=== PATIENT | female | born 1985 | race Caucasian/White ===

== ENCOUNTER 2017-09-11 14:57 | Emergency (ER) | payer OTHER, MEDICAID ==
[~2017-09-11] VITALS: Ht 180.3 cm; Wt 79.4 kg
[~2017-09-11 14:57] MED LIST: ALBUTEROL2.5 MG/31 INH; PREDNISONE 20 M20 M1 PO; PREDNISONE50 MG PO; VENTOLIN HFA 1818 GM
[2017-09-11] MEDS ORDERED: PREDNISONE 20 M20 MG PO (16:38)
[2017-09-11] MEDS ORDERED: ALBUTEROL2.5 MG/31 INH (16:38)
[2017-09-11] MEDS ORDERED: PROAIR HFA8.5 GM INH (16:38)
[2017-09-11 16:58] VITALS: BP 126/88
== END 2017-09-11 16:59 | disposition home or self-care (01) ==
LOC: M.ERS 14:57
DX: J45.909 Unspecified asthma, uncomplicated (principal)

== ENCOUNTER 2018-01-06 09:57 | Emergency (ER) | payer OTHER, MEDICAID ==
[~2018-01-06] VITALS: Ht 180.3 cm; Wt 81.7 kg
[~2018-01-06 09:57] MED LIST changes: +PREDNISONE 20 M20 MG PO; +PROAIR HFA8.5 GM INH
[2018-01-06] MEDS ORDERED: BUTALB-APAP-CA1 EACH PO (10:21)
[2018-01-06] MEDS ORDERED: MEDROLDOSEPACK PO (10:21)
[2018-01-06] MEDS ORDERED: ZOFRAN ODT4 MG PO (10:21)
[2018-01-06] MEDS ORDERED: ZPAK PO (10:25)
[2018-01-06 10:37] VITALS: BP 111/60
== END 2018-01-06 10:40 | disposition home or self-care (01) ==
LOC: M.ERS 09:57
DX: G43.909 Migraine, unspecified, not intractable, without status migrainosus (principal); J32.0 Chronic maxillary sinusitis; J45.909 Unspecified asthma, uncomplicated

== ENCOUNTER 2018-01-13 04:10 | Emergency (ER) | payer OTHER, MEDICAID ==
[~2018-01-13] VITALS: Ht 180.3 cm; Wt 81.7 kg
[~2018-01-13 04:10] MED LIST changes: +BUTALB-APAP-CA1 EACH PO; +MEDROLDOSEPACK PO; +ZOFRAN ODT4 MG PO; +ZPAK PO
[2018-01-13] MEDS ORDERED: NASONEX17 GM NASAL (05:45)
[2018-01-13] MEDS ORDERED: BUTALB-APAP-CA1 EACH PO (05:45)
[2018-01-13 06:04] VITALS: BP 113/75
== END 2018-01-13 06:06 | disposition home or self-care (01) ==
LOC: M.ERS 04:10
DX: G43.909 Migraine, unspecified, not intractable, without status migrainosus (principal); J45.909 Unspecified asthma, uncomplicated

== ENCOUNTER 2018-04-08 10:07 | Emergency (ER) | payer OTHER, MEDICAID ==
[~2018-04-08] VITALS: Ht 180.3 cm; Wt 86.2 kg
[~2018-04-08 10:07] MED LIST changes: +NASONEX17 GM NASAL
[2018-04-08 10:12] VITALS: BP 117/77
[2018-04-08] MEDS ORDERED: MEDROLDOSEPACK PO (10:26)
== END 2018-04-08 10:42 | disposition home or self-care (01) ==
LOC: M.ERS 10:07
DX: J30.2 Other seasonal allergic rhinitis (principal); J06.9 Acute upper respiratory infection, unspecified

== ENCOUNTER 2018-04-29 11:28 | Emergency (ER) | payer OTHER, MEDICAID ==
[~2018-04-29] VITALS: Ht 180.3 cm; Wt 93.4 kg
[2018-04-29 11:48] LABS: ABSOLUTE LYMPHOCYTES 1.9 thou/uL (0.8-5.3); ABSOLUTE MONOCYTES 0.3 thou/uL (0.0-1.2); BASOPHILS 0.5 %; EOSINOPHILS 0.5 %; HEMATOCRIT 40.9 % (37.0-47.0); HEMOGLOBIN 13.9 gm/dL (12.0-15.0); LYMPHOCYTES 26.2 %; MCH 28.9 pg (26.0-34.0); MCHC 33.9 g/dL (28.0-37.0); MCV 85.3 fL (80.0-100.0); MONOCYTES 3.9 %; MPV 9.5 fl. (7.2-11.1); NUCLEATED RBCS 0 /100WBC; PLATELET COUNT* 198 thou/uL (150-400); POLYS 68.9 %; RBC 4.79 mil/uL (4.20-5.00); RDW-CV 13.1 % (10.5-14.5); WBC 7.3 thou/uL (4.0-11.0)
[2018-04-29 11:56] LABS: ANION GAP 13 mmol/L (7-16); BUN 12 mg/dL (7-18); CALCIUM 9.2 mg/dL (8.5-10.1); CHLORIDE 102 mmol/L (98-107); CO2 22 mmol/L (21-32); CREATININE 1.1 mg/dL (0.6-1.3); GLUCOSE 122 mg/dL (70-99); SODIUM 137 mmol/L (136-145)
[2018-04-29 12:09] LABS: ALKALINE PHOSPHATASE 54 U/L (46-116); SGOT 15 U/L (15-37); SGPT 19 U/L (30-65); TOTAL BILIRUBIN 0.4 mg/dL (<0.1-1.0); TROPONIN-I LEVEL <0.06 ng/mL (<0.06)
[2018-04-29 14:21] LABS: URINE BILIRUBIN NEGATIVE (Negative); URINE BLOOD NEGATIVE (Negative); URINE CLARITY CLEAR; URINE COLOR YELLOW; URINE GLUCOSE-RANDOM NEGATIVE (Negative); URINE KETONES 1+ (Negative); URINE LEUKOCYTES-REFLEX NEGATIVE (Negative); URINE NITRITE-REFLEX NEGATIVE (Negative); URINE PROTEIN NEGATIVE (Negative); URINE SPECIFIC GRAVITY <= 1.005 (1.005-1.030); URINE UROBILINOGEN 0.2 E.U./dl (0.2-1.0)
[2018-04-29 14:28] LABS: AMP/METHAMP Negative (Negative); BARBITURATES Negative (Negative); BENZODIAZEPINES Negative (Negative); COCAINE POSITIVE (Negative); METHADONE Negative (Negative); OPIATES Negative (Negative); PCP Negative (Negative); THC Negative (Negative)
[2018-04-29 16:05] VITALS: BP 132/79
--- NOTE | 2018-04-30 16:07 | EKG ---
[place] [address] ELECTROCARDIOGRAM REPORT Name: NEOM RIDDLE Room: [facility]#: [id number] Admission: 04/29/18 Attend Phys: Discharge: 04/29/18 Date of : [birth year] Report #: [id number] THIS REPORT FOR: //name// [facility] ED Test Date: 2018-04-29 Test Time: 13:54:53 Pat Name: NEMO RIDDLE Department: Room: Gender: F Home Health Aid: : 1985 Requested By: Madison Conner Order Number: [id number] MD: Guillermo Mccrary Measurements Intervals [place] Rate: 73 P: 88 [place]: 135 QRS: 65 QRSD: 96 T: QT: 411 QTc: 453 Interpretive Statements Sinus rhythm Abnrm T, consider ischemia, anterolateral lds Baseline wander in lead(s) III,aVL No previous ECG available for comparison Electronically Signed On 04-30-2018 16:07:34 CDT by Guillermo Mccrary [email or web address] <ELECTRONICALLY SIGNED> By: Guillermo Mccarry MD, [facility] 04/30/18 1607 1354 1354 Guillermo Mccrary MD, FACC /EPI
--- NOTE | 2018-04-30 16:07 | EKG ---
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
== END 2018-04-29 16:18 | disposition home or self-care (01) ==
LOC: M.ERS 11:28
PROVIDERS: Emergency Medicine Emergency Medical Services; Nurse Practitioner Family
DX: R07.89 Other chest pain (principal); R11.10 Vomiting, unspecified; J45.909 Unspecified asthma, uncomplicated; Z79.899 Other long term (current) drug therapy

== ENCOUNTER 2018-05-03 10:04 | Emergency (ER) | payer OTHER, MEDICAID ==
[~2018-05-03] VITALS: Ht 180.3 cm; Wt 83.0 kg
[2018-05-03] MEDS ORDERED: ACCUNEB SO1.25 MG/1 INH (10:11)
[2018-05-03 10:38] LABS: URINE BILIRUBIN NEGATIVE (Negative); URINE BLOOD NEGATIVE (Negative); URINE CLARITY CLEAR; URINE COLOR YELLOW; URINE GLUCOSE-RANDOM NEGATIVE (Negative); URINE KETONES NEGATIVE (Negative); URINE LEUKOCYTES-REFLEX NEGATIVE (Negative); URINE NITRITE-REFLEX NEGATIVE (Negative); URINE PROTEIN NEGATIVE (Negative); URINE SPECIFIC GRAVITY <= 1.005 (1.005-1.030); URINE UROBILINOGEN 0.2 E.U./dl (0.2-1.0)
[2018-05-03 10:42] LABS: ABSOLUTE EOSINOPHILS 0.1 thou/uL (0.0-0.7); ABSOLUTE LYMPHOCYTES 2.3 thou/uL (0.8-5.3); ABSOLUTE MONOCYTES 0.3 thou/uL (0.0-1.2); ABSOLUTE NEUTROPHILS 2.9 thou/uL (1.6-8.1); BASOPHILS 0.4 %; EOSINOPHILS 2.3 %; LYMPHOCYTES 40.9 %; MCH 28.7 pg (26.0-34.0); MCHC 33.4 g/dL (28.0-37.0); MCV 86.1 fL (80.0-100.0); MONOCYTES 4.9 %; MPV 9.1 fl. (7.2-11.1); NUCLEATED RBCS 0 /100WBC; PLATELET COUNT* 206 thou/uL (150-400); POLYS 51.5 %; RBC 4.87 mil/uL (4.20-5.00); RDW-CV 13.4 % (10.5-14.5); WBC 5.7 thou/uL (4.0-11.0)
[2018-05-03 10:44] LABS: AMP/METHAMP Negative (Negative); BARBITURATES POSITIVE (Negative); BENZODIAZEPINES Negative (Negative); COCAINE Negative (Negative); METHADONE Negative (Negative); OPIATES Negative (Negative); PCP Negative (Negative); THC Negative (Negative)
[2018-05-03 10:50] LABS: ANION GAP 7 mmol/L (7-16); BUN 11 mg/dL (7-18); CALCIUM 9.1 mg/dL (8.5-10.1); CHLORIDE 102 mmol/L (98-107); CO2 28 mmol/L (21-32); GLUCOSE 82 mg/dL (70-99); POTASSIUM 3.8 mmol/L (3.5-5.1); SODIUM 137 mmol/L (136-145)
[2018-05-03 10:57] LABS: ALBUMIN 3.9 g/dL (3.4-5.0); ALKALINE PHOSPHATASE 52 U/L (46-116); SGOT 12 U/L (15-37); SGPT 15 U/L (30-65); TOTAL BILIRUBIN 0.3 mg/dL (<0.1-1.0); TOTAL PROTEIN 7.9 g/dL (6.4-8.2); TROPONIN-I LEVEL <0.06 ng/mL (<0.06)
[2018-05-03] MEDS ORDERED: VISTARIL 25 MG25 M1 PO (11:13)
[2018-05-03 11:38] VITALS: BP 119/76
--- NOTE | 2018-05-03 16:47 | EKG ---
[place] [address] ELECTROCARDIOGRAM REPORT Name: NEMO RIDDLE Room: [facility]#: [id number] Admission: 05/03/18 Attend Phys: Discharge: 05/03/18 Date of : [birth year] Report #: [id number] THIS REPORT FOR: //name// [facility] ED Test Date: 2018-05-03 Test Time: 10:10:12 Pat Name: NEMO RIDDLE Department: Room: Gender: F Air Pollution Auditor: Marguerite ALEJO : 1985 Requested By: Evette Ramirez Order Number: [id number] MD: Guillermo Mccrary Measurements Intervals [place] Rate: 82 P: 85 [place]: 130 QRS: 58 QRSD: 87 T: -23 QT: 338 QTc: 395 Interpretive Statements Sinus rhythm Probable left atrial enlargement Borderline repolarization abnormality Compared to ECG 04/29/2018 13:54:53 Possible ischemia no longer present Electronically Signed On 05-03-2018 16:47:36 CDT by Guillermo Mccrary [email or web address] <ELECTRONICALLY SIGNED> By: Guillermo Mccrary MD, [facility] 05/03/18 1647 1010 1010 Guillermo Mccrary MD, FAC /EPI
== END 2018-05-03 11:39 | disposition home or self-care (01) ==
LOC: M.ERS 10:04
PROVIDERS: Nurse Practitioner Family
DX: R07.89 Other chest pain (principal); F41.9 Anxiety disorder, unspecified; J45.909 Unspecified asthma, uncomplicated

== ENCOUNTER 2018-06-26 10:59 | Emergency (ER) | payer OTHER, MEDICAID ==
[~2018-06-26] VITALS: Ht 180.3 cm; Wt 96.8 kg
[~2018-06-26 10:59] MED LIST changes: +ACCUNEB SO1.25 MG/1 INH; +VISTARIL 25 MG25 M1 PO
[2018-06-26 11:36] LABS: ABSOLUTE BASOPHILS 0.1 thou/uL (0.0-0.2); ABSOLUTE EOSINOPHILS 0.2 thou/uL (0.0-0.7); ABSOLUTE LYMPHOCYTES 2.2 thou/uL (0.8-5.3); ABSOLUTE MONOCYTES 0.4 thou/uL (0.0-1.2); BASOPHILS 1.2 %; EOSINOPHILS 3.4 %; HEMATOCRIT 40.1 % (37.0-47.0); HEMOGLOBIN 13.4 gm/dL (12.0-15.0); LYMPHOCYTES 46.7 %; MCH 28.6 pg (26.0-34.0); MCHC 33.3 g/dL (28.0-37.0); MCV 85.9 fL (80.0-100.0); MONOCYTES 7.5 %; NUCLEATED RBCS 0 /100WBC; PLATELET COUNT* 198 thou/uL (150-400); POLYS 41.2 %; RBC 4.67 mil/uL (4.20-5.00); RDW-CV 13.3 % (10.5-14.5); WBC 4.8 thou/uL (4.0-11.0)
[2018-06-26 11:44] LABS: CALCIUM 8.7 mg/dL (8.5-10.1); CREATININE 0.9 mg/dL (0.6-1.3); POTASSIUM 3.9 mmol/L (3.5-5.1)
[2018-06-26 11:49] LABS: ALBUMIN 3.5 g/dL (3.4-5.0); TOTAL BILIRUBIN 0.2 mg/dL (<0.1-1.0); TOTAL PROTEIN 7.2 g/dL (6.4-8.2)
[2018-06-26] MEDS ORDERED: DICLOFENAC SODI75 MG PO (12:25)
[2018-06-26] MEDS ORDERED: ZOFRAN ODT4 MG PO (12:25)
[2018-06-26 12:45] VITALS: BP 119/62
== END 2018-06-26 12:47 | disposition home or self-care (01) ==
LOC: M.ERS 10:59
PROVIDERS: Physician Assistant
DX: R51 Headache (principal); R11.2 Nausea with vomiting, unspecified; F41.9 Anxiety disorder, unspecified; J45.909 Unspecified asthma, uncomplicated

== ENCOUNTER 2018-07-03 06:57 | Emergency (ER) | payer OTHER, MEDICAID ==
[~2018-07-03] VITALS: Ht 180.3 cm; Wt 96.6 kg
[~2018-07-03 06:57] MED LIST changes: +DICLOFENAC SODI75 MG PO
[2018-07-03] MEDS ORDERED: HYDROXYZINE HCL25 M1 PO (07:04)
[2018-07-03] MEDS ORDERED: AUGMENTIN125 MG/53 PO (07:04)
[2018-07-03] MEDS ORDERED: LEXAPRO 10 MG T10 M1 PO (07:04)
[2018-07-03 07:39] LABS: ABSOLUTE EOSINOPHILS 0.1 thou/uL (0.0-0.7); ABSOLUTE LYMPHOCYTES 1.7 thou/uL (0.8-5.3); ABSOLUTE MONOCYTES 0.3 thou/uL (0.0-1.2); BASOPHILS 0.6 %; HEMATOCRIT 40.3 % (37.0-47.0); HEMOGLOBIN 13.3 gm/dL (12.0-15.0); LYMPHOCYTES 26.9 %; MCH 28.4 pg (26.0-34.0); MCV 86.2 fL (80.0-100.0); MONOCYTES 4.8 %; MPV 9.1 fl. (7.2-11.1); NUCLEATED RBCS 0 /100WBC; PLATELET COUNT* 192 thou/uL (150-400); POLYS 65.7 %; RBC 4.68 mil/uL (4.20-5.00); RDW-CV 13.2 % (10.5-14.5); WBC 6.2 thou/uL (4.0-11.0)
[2018-07-03 07:43] LABS: URINE BILIRUBIN NEGATIVE (Negative); URINE BLOOD TRACE (Negative); URINE CLARITY CLEAR; URINE COLOR YELLOW; URINE GLUCOSE-RANDOM NEGATIVE (Negative); URINE KETONES NEGATIVE (Negative); URINE LEUKOCYTES-REFLEX NEGATIVE (Negative); URINE NITRITE-REFLEX NEGATIVE (Negative); URINE PROTEIN NEGATIVE (Negative); URINE UROBILINOGEN 0.2 E.U./dl (0.2-1.0)
[2018-07-03 07:48] LABS: CALCIUM 8.6 mg/dL (8.5-10.1); POTASSIUM 4.3 mmol/L (3.5-5.1)
[2018-07-03 07:52] LABS: ALBUMIN 3.5 g/dL (3.4-5.0); TOTAL BILIRUBIN 0.2 mg/dL (<0.1-1.0); TOTAL PROTEIN 7.2 g/dL (6.4-8.2)
[2018-07-03] MEDS ORDERED: PHENERGAN 25 MG25 M1 PO (09:10)
[2018-07-03 09:24] VITALS: BP 149/79
== END 2018-07-03 09:25 | disposition home or self-care (01) ==
LOC: M.ERS 06:57
PROVIDERS: Personal Emergency Response Attendant
DX: R11.2 Nausea with vomiting, unspecified (principal); R07.9 Chest pain, unspecified; J45.909 Unspecified asthma, uncomplicated; R00.0 Tachycardia, unspecified; R51 Headache

== ENCOUNTER 2018-12-30 11:18 | Emergency (ER) | payer OTHER, MEDICAID ==
[~2018-12-30] VITALS: Ht 180.3 cm; Wt 86.2 kg
[~2018-12-30 11:18] MED LIST changes: +AUGMENTIN125 MG/53 PO; +HYDROXYZINE HCL25 M1 PO; +LEXAPRO 10 MG T10 M1 PO; +PHENERGAN 25 MG25 M1 PO
[2018-12-30] MEDS ORDERED: ACCUNEB SO1.25 MG/1 INH (11:37)
[2018-12-30] MEDS ORDERED: ZPAK PO (12:33)
[2018-12-30] MEDS ORDERED: PREDNISONE 20 M20 M1 PO (12:33)
[2018-12-30 13:41] VITALS: BP 118/68
== END 2018-12-30 13:41 | disposition home or self-care (01) ==
LOC: M.ERS 11:18
DX: J32.0 Chronic maxillary sinusitis (principal); J45.909 Unspecified asthma, uncomplicated

== ENCOUNTER 2019-08-03 13:54 | Emergency (ER) | payer OTHER, MEDICAID ==
[~2019-08-03] VITALS: Ht 180.3 cm; Wt 89.8 kg
[2019-08-03 14:44] LABS: INFLUENZA A ANTIGEN Negative (Negative); INFLUENZA B ANTIGEN Negative (Negative)
[2019-08-03] MEDS ORDERED: ZYRTEC10 M5 PO (15:15)
[2019-08-03] MEDS ORDERED: AMOXICILLIN 50500 MG PO (15:15)
[2019-08-03] MEDS ORDERED: FLONASE 0.05%50 MCG NARES (15:15)
[2019-08-03 15:22] VITALS: BP 120/75
== END 2019-08-03 15:22 | disposition home or self-care (01) ==
LOC: M.ERS 13:54
PROVIDERS: Physician Assistant
DX: J32.0 Chronic maxillary sinusitis (principal); J45.909 Unspecified asthma, uncomplicated

== ENCOUNTER 2020-10-28 14:20 | Emergency (ER) | payer OTHER, MEDICAID ==
[~2020-10-28] VITALS: Ht 180.3 cm; Wt 99.8 kg
[~2020-10-28 14:20] MED LIST changes: +AMOXICILLIN 50500 MG PO; +FLONASE 0.05%50 MCG NARES; +ZYRTEC10 M5 PO
[2020-10-28] MEDS ORDERED: PREDNISONE 20 M20 MG PO (15:01)
[2020-10-28 15:48] VITALS: BP 131/83
== END 2020-10-28 15:49 | disposition home or self-care (01) ==
LOC: M.ERS 14:20
DX: J45.909 Unspecified asthma, uncomplicated (principal)

== ENCOUNTER 2020-12-20 08:29 | Emergency (ER) | payer OTHER, MEDICAID ==
[~2020-12-20] VITALS: Ht 180.3 cm; Wt 79.4 kg
[2020-12-20 09:11] LABS: ABSOLUTE EOSINOPHILS 0.1 thou/uL (0.0-0.7); ABSOLUTE LYMPHOCYTES 2.4 thou/uL (0.8-5.3); ABSOLUTE MONOCYTES 0.3 thou/uL (0.0-1.2); ABSOLUTE NEUTROPHILS 2.8 thou/uL (1.6-8.1); BASOPHILS 0.5 %; EOSINOPHILS 1.8 %; HEMATOCRIT 40.6 % (37.0-47.0); HEMOGLOBIN 13.8 gm/dL (12.0-15.0); MCH 28.2 pg (26.0-34.0); MCHC 33.9 g/dL (28.0-37.0); MCV 83.2 fL (80.0-100.0); MONOCYTES 5.4 %; MPV 8.8 fl. (7.2-11.1); NUCLEATED RBCS 1 /100WBC; PLATELET COUNT* 232 thou/uL (150-400); POLYS 49.3 %; RBC 4.88 mil/uL (4.20-5.00); RDW-CV 14.1 % (10.5-14.5); WBC 5.6 thou/uL (4.0-11.0)
[2020-12-20 09:39] LABS: CREATININE 0.9 mg/dL (0.6-1.3)
[2020-12-20 09:55] LABS: ALBUMIN 3.8 g/dL (3.4-5.0); TOTAL BILIRUBIN 0.4 mg/dL (<0.1-1.0); TOTAL PROTEIN 7.8 g/dL (6.4-8.2)
[2020-12-20] MEDS ORDERED: PREDNISONE50 MG PO (10:08)
[2020-12-20 11:44] VITALS: BP 116/75
--- NOTE | 2020-12-21 13:53 | EKG ---
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1985 Requested By: Danny Chapman Order Number: [id number] MD: Guillermo Mccrary Measurements Intervals [place] Rate: 90 P: 76 MO: 127 QRS: 52 QRSD: 88 T: -62 QT: 333 QTc: 408 Interpretive Statements Sinus rhythm Nonspecific repol abnormality, diffuse leads Baseline wander in lead(s) V2 Compared to ECG 05/03/2018 10:10:12 No significant changes Electronically Signed On 12-21-2020 13:53:14 CDT by Guillermo Mccrary [email or web address] <ELECTRONICALLY SIGNED> By: Guillermo Mccrary MD, [facility] 12/21/20 1353 0844 0844 Guillermo Mccrary MD, [facility] /EPI
== END 2020-12-20 11:46 | disposition home or self-care (01) ==
LOC: M.ERS 08:29
PROVIDERS: Emergency Medicine Emergency Medical Services
DX: J45.909 Unspecified asthma, uncomplicated (principal)

== ENCOUNTER 2021-03-23 07:53 | Emergency (ER) | payer OTHER, MEDICAID ==
[~2021-03-23] VITALS: Ht 170.2 cm; Wt 90.7 kg
[2021-03-23] MEDS ORDERED: ZOFRAN ODT4 MG DISSOLVE (08:35)
[2021-03-23] MEDS ORDERED: PREDNISONE 20 M20 M1 PO (08:35)
[2021-03-23] MEDS ORDERED: IBUPROFEN 800800 MG PO (08:35)
[2021-03-23 08:38] VITALS: BP 127/98
== END 2021-03-23 08:39 | disposition home or self-care (01) ==
LOC: M.ERS 07:53
DX: B34.9 Viral infection, unspecified (principal); Z20.822 Contact with and (suspected) exposure to COVID-19; R11.2 Nausea with vomiting, unspecified; J45.909 Unspecified asthma, uncomplicated; F41.9 Anxiety disorder, unspecified; Z79.899 Other long term (current) drug therapy

== ENCOUNTER 2021-03-25 07:52 | Emergency (ER) | payer OTHER, MEDICAID ==
[~2021-03-25] VITALS: Ht 180.3 cm; Wt 77.1 kg
[~2021-03-25 07:52] MED LIST changes: +IBUPROFEN 800800 MG PO; +ZOFRAN ODT4 MG DISSOLVE
[2021-03-25 08:13] LABS: ABSOLUTE EOSINOPHILS 0.1 thou/uL (0.0-0.7); ABSOLUTE MONOCYTES 0.4 thou/uL (0.0-1.2); BASOPHILS 0.6 %; HEMOGLOBIN 14.1 gm/dL (12.0-15.0); RDW-CV 13.8 % (10.5-14.5); WBC 6.4 thou/uL (4.0-11.0)
[2021-03-25 08:15] LABS: ABSOLUTE NEUTROPHILS 2.9 thou/uL (1.6-8.1); EOSINOPHILS 1.1 %; HEMATOCRIT 41.6 % (37.0-47.0); LYMPHOCYTES 46.7 %; MCHC 33.8 g/dL (28.0-37.0); MCV 82.9 fL (80.0-100.0); MONOCYTES 6.3 %; MPV 9.4 fl. (7.2-11.1); NUCLEATED RBCS 0 /100WBC; PLATELET COUNT* 214 thou/uL (150-400); POLYS 45.3 %; RBC 5.02 mil/uL (4.20-5.00)
[2021-03-25 08:20] LABS: CALCIUM 9.3 mg/dL (8.5-10.1); CREATININE 1.2 mg/dL (0.6-1.3); POTASSIUM 4.3 mmol/L (3.5-5.1)
[2021-03-25 08:29] LABS: ALBUMIN 4.1 g/dL (3.4-5.0); TOTAL BILIRUBIN 0.4 mg/dL (<0.1-1.0); TOTAL PROTEIN 7.8 g/dL (6.4-8.2)
[2021-03-25] MEDS ORDERED: PREDNISONE50 MG PO (10:43)
[2021-03-25 11:58] VITALS: BP 130/77
--- NOTE | 2021-03-25 16:19 | EKG ---
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: : 1985 Requested By: Danny Chapman Order Number: [id number] MD: Guillermo Mccrary Measurements Intervals [place] Rate: 85 P: 100 [place]: 130 QRS: 76 QRSD: 88 T: -17 QT: 365 QTc: 434 Interpretive Statements Sinus rhythm Borderline T abnormalities, inferior leads Compared to ECG 12/20/2020 08:44:17 T-wave abnormality now present Early repolarization no longer present Electronically Signed On 03-25-2021 16:18:37 CDT by Guillermo Mccrary [email or web address] <ELECTRONICALLY SIGNED> By: Guillermo Mccrary MD, [facility] 03/25/21 1618 0757 0757 Guillermo Mccrary MD, [facility] /EPI
--- NOTE | 2021-03-25 16:20 | EKG ---
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1985 Requested By: Danny Chapman Order Number: [id number] MD: Guillermo Mccrary Measurements Intervals [place] Rate: 72 P: 73 [place]: 133 QRS: 72 QRSD: 86 T: 15 QT: 395 QTc: 433 Interpretive Statements Sinus rhythm Borderline T wave abnormalities Compared to ECG 03/25/2021 07:57:05 No significant changes Electronically Signed On 03-25-2021 16:19:48 CDT by Guillermo Mccrary [email or web address] <ELECTRONICALLY SIGNED> By: Guillermo Mccrary MD, [facility] 03/25/21 1619 0937 0937 Guillermo Mccrary MD, [facility] /EPI
[2021-03-26] MEDS ORDERED: LEXAPRO 10 MG T10 M2 PO (04:48)
[2021-03-26] MEDS ORDERED: ATIVAN0.5 M1 PO (19:08)
== END 2021-03-25 12:00 | disposition home or self-care (01) ==
LOC: M.ERS 07:52
PROVIDERS: Emergency Medicine Emergency Medical Services
DX: J45.909 Unspecified asthma, uncomplicated (principal); Z20.822 Contact with and (suspected) exposure to COVID-19; F41.9 Anxiety disorder, unspecified; Z79.899 Other long term (current) drug therapy

== ENCOUNTER 2021-03-26 04:33 | Emergency (ER) | payer OTHER, MEDICAID ==
[~2021-03-26] VITALS: Ht 180.3 cm; Wt 77.1 kg
[2021-03-26] MEDS ORDERED: LEXAPRO 10 MG T10 M2 PO (04:48)
[2021-03-26 06:01] VITALS: BP 112/54
--- NOTE | 2021-03-26 14:34 | EKG ---
[place] [address] ELECTROCARDIOGRAM REPORT Name: NEMO RIDDLE Room: [facility]#: [id number] Admission: 03/26/21 Attend Phys: Discharge: 03/26/21 Date of : [birth year] Date of Service: 03/26/21 0454 Report #: [id number] THIS REPORT FOR: //name// [facility] ED Test Date: 2021-03-26 Test Time: 04:54:12 Pat Name: NEMO RIDDLE Department: Room: Gender: Healthcare Representative: : 1985 Requested By: Ana Hays Order Number: [id number] MD: Guillermo Mccrary Measurements Intervals [place] Rate: 81 P: 75 MO: 141 QRS: 56 QRSD: 93 T: -3 QT: 370 QTc: 430 Interpretive Statements Sinus rhythm Borderline T abnormalities, diffuse leads Baseline wander in lead(s) V6 Compared to ECG 03/25/2021 09:37:37 No significant changes Electronically Signed On 03-26-2021 14:34:49 CDT by Guillermo Mccrary [email or web address] <ELECTRONICALLY SIGNED> By: Guillermo Mccrary MD, [facility] 03/26/21 1434 0454 0454 Guillermo Mccrary MD, [facility] /EPI
[2021-03-26] MEDS ORDERED: ATIVAN0.5 M1 PO (19:08)
[2021-03-27] MEDS ORDERED: XANAX 0.5 MG0.5 MG PO (07:48)
== END 2021-03-26 06:01 | disposition home or self-care (01) ==
LOC: M.ERS 04:33
DX: R00.2 Palpitations (principal); F41.9 Anxiety disorder, unspecified; J45.909 Unspecified asthma, uncomplicated; Z79.1 Long term (current) use of non-steroidal anti-inflammatories (NSAID); Z79.899 Other long term (current) drug therapy; Z79.891 Long term (current) use of opiate analgesic; Z79.51 Long term (current) use of inhaled steroids

== ENCOUNTER 2021-03-26 15:45 | Emergency (ER) | payer OTHER, MEDICAID ==
[~2021-03-26] VITALS: Ht 180.3 cm; Wt 77.1 kg
[~2021-03-26 15:45] MED LIST changes: +LEXAPRO 10 MG T10 M2 PO
[2021-03-26 17:12] LABS: URINE BILIRUBIN NEGATIVE (Negative); URINE BLOOD NEGATIVE (Negative); URINE CLARITY CLEAR; URINE COLOR YELLOW; URINE GLUCOSE-RANDOM NEGATIVE (Negative); URINE KETONES TRACE (Negative); URINE LEUKOCYTES-REFLEX NEGATIVE (Negative); URINE NITRITE-REFLEX NEGATIVE (Negative); URINE PROTEIN NEGATIVE (Negative); URINE UROBILINOGEN 0.2 E.U./dl (0.2-1.0)
[2021-03-26 17:14] LABS: HEMATOCRIT 38.4 % (37.0-47.0); HEMOGLOBIN 13.1 gm/dL (12.0-15.0); MCV 82.3 fL (80.0-100.0); MPV 9.7 fl. (7.2-11.1); NUCLEATED RBCS 0 /100WBC; PLATELET COUNT* 214 thou/uL (150-400); RBC 4.67 mil/uL (4.20-5.00); RDW-CV 13.8 % (10.5-14.5)
[2021-03-26 17:21] LABS: CALCIUM 8.8 mg/dL (8.5-10.1); CREATININE 1.2 mg/dL (0.6-1.3); POTASSIUM 3.8 mmol/L (3.5-5.1)
[2021-03-26 17:22] LABS: AMP/METHAMP Negative (Negative); BARBITURATES Negative (Negative); BENZODIAZEPINES POSITIVE (Negative); COCAINE Negative (Negative); METHADONE Negative (Negative); OPIATES Negative (Negative); PCP Negative (Negative); THC Negative (Negative)
[2021-03-26 17:32] LABS: MAGNESIUM 1.9 mg/dL (1.8-2.4); TOTAL BILIRUBIN 0.4 mg/dL (<0.1-1.0); TOTAL PROTEIN 7.5 g/dL (6.4-8.2)
[2021-03-26 17:42] LABS: ABSOLUTE LYMPHOCYTES 0.5 thou/uL (0.8-5.3); ABSOLUTE MONOCYTES 0.1 thou/uL (0.0-1.2); ABSOLUTE NEUTROPHILS 7.4 thou/uL (1.6-8.1); PLATELET ESTIMATE ADEQUATE
[2021-03-26] MEDS ORDERED: ATIVAN0.5 M1 PO (19:08)
[2021-03-26 19:28] VITALS: BP 124/70
[2021-03-27] MEDS ORDERED: XANAX 0.5 MG0.5 MG PO (07:48)
--- NOTE | 2021-03-27 11:07 | EKG ---
[place] [address] ELECTROCARDIOGRAM REPORT Name: NEMO RIDDLE Room: [facility]#: [id number] Admission: 03/26/21 Attend Phys: Discharge: 03/26/21 Date of : [birth year] Date of Service: 03/26/21 1553 Report #: [id number] THIS REPORT FOR: //name// [facility] ED Test Date: 2021-03-26 Test Time: 15:53:26 Pat Name: NEMO RIDDLE Department: Room: Gender: Rn Neurology: TDS : 1985 Requested By: Valerie See Order Number: [id number] MD: Guillermo Mccrary Measurements Intervals [place] Rate: 100 P: 68 [place]: 131 QRS: 45 QRSD: 84 T: -32 QT: 331 QTc: 427 Interpretive Statements Sinus tachycardia Probable left atrial enlargement Diffuse nonspecific ST-T abnormalities Baseline wander in lead(s) V3 Compared to ECG 03/26/2021 04:54:12 Sinus rate has increased Electronically Signed On 03-27-2021 11:07:30 CDT by Guillermo Mccrary [email or web address] <ELECTRONICALLY SIGNED> By: Guillermo Mccrary MD, [facility] 03/27/21 1107 1553 1553 Guillermo Mccrary MD, [facility] /EPI
== END 2021-03-26 19:29 | disposition home or self-care (01) ==
LOC: M.ERS 15:45
PROVIDERS: Nurse Practitioner Family
DX: F41.9 Anxiety disorder, unspecified (principal); R07.89 Other chest pain; R55 Syncope and collapse; J45.909 Unspecified asthma, uncomplicated; Z79.1 Long term (current) use of non-steroidal anti-inflammatories (NSAID); Z79.891 Long term (current) use of opiate analgesic; Z79.899 Other long term (current) drug therapy; Z79.51 Long term (current) use of inhaled steroids

== ENCOUNTER 2021-03-27 07:36 | Emergency (ER) | payer OTHER, MEDICAID ==
[~2021-03-27] VITALS: Ht 180.3 cm; Wt 77.1 kg
[~2021-03-27 07:36] MED LIST changes: +ATIVAN0.5 M1 PO
[2021-03-27] MEDS ORDERED: XANAX 0.5 MG0.5 MG PO (07:48)
[2021-03-27 07:50] VITALS: BP 125/82
== END 2021-03-27 07:51 | disposition home or self-care (01) ==
LOC: M.ERS 07:36
DX: F41.0 Panic disorder [episodic paroxysmal anxiety] (principal); J45.909 Unspecified asthma, uncomplicated; Z79.899 Other long term (current) drug therapy

== ENCOUNTER 2021-03-28 08:13 | Emergency (ER) | payer OTHER, MEDICAID ==
[~2021-03-28] VITALS: Ht 180.3 cm; Wt 78.0 kg
[~2021-03-28 08:13] MED LIST changes: +XANAX 0.5 MG0.5 MG PO
[2021-03-28 08:35] VITALS: BP 141/87
--- NOTE | 2021-03-28 09:10 | EKG ---
[place] [address] ELECTROCARDIOGRAM REPORT Name: NEMO RIDDLE Room: [facility]#: [id number] Admission: 03/28/21 Attend Phys: Discharge: 03/28/21 Date of : [birth year] Date of Service: 03/28/21 0825 Report #: [id number] THIS REPORT FOR: //name// [facility] ED Test Date: 2021-03-28 Test Time: 08:25:27 Pat Name: NEMO RIDDLE Department: Room: Gender: F All Around Presser: : 1985 Requested By: Cheng Canales Order Number: [id number] MD: Pantera Fischer Measurements Intervals [place] Rate: 87 P: 85 [place]: 146 QRS: 63 QRSD: 94 T: -23 QT: 372 QTc: 448 Interpretive Statements Sinus rhythm Borderline repolarization abnormality Baseline wander in lead(s) II,III,aVR,aVL,aVF Compared to ECG 03/26/2021 15:53:26 Sinus tachycardia no longer present ST (T wave) deviation no longer present Electronically Signed On 03-28-2021 9:10:31 CDT by Pantera Fischer [email or web address] <ELECTRONICALLY SIGNED> By: Pantera Fischer MD, [facility] 03/28/2110 4 4 Pantera Fischer MD, FAC /EPI
== END 2021-03-28 08:37 | disposition home or self-care (01) ==
LOC: M.ERS 08:13
DX: F41.0 Panic disorder [episodic paroxysmal anxiety] (principal); J45.909 Unspecified asthma, uncomplicated; Z79.899 Other long term (current) drug therapy

== ENCOUNTER 2021-03-30 19:43 | Emergency (ER) | payer OTHER, MEDICAID ==
[~2021-03-30] VITALS: Ht 180.3 cm; Wt 104.2 kg
[2021-03-30 21:27] VITALS: BP 119/70
== END 2021-03-30 21:27 | disposition home or self-care (01) ==
LOC: M.ERS 19:43
DX: G97.1 Other reaction to spinal and lumbar puncture (principal); R51.9 Headache, unspecified; J45.909 Unspecified asthma, uncomplicated; F41.9 Anxiety disorder, unspecified; Z79.899 Other long term (current) drug therapy; Y84.4 Aspiration of fluid as the cause of abnormal reaction of the patient, or of later complication, without mention of misadventure at the time of the procedure

== ENCOUNTER 2021-04-04 14:13 | Emergency (ER) | payer OTHER, MEDICAID ==
[~2021-04-04] VITALS: Ht 180.3 cm; Wt 81.7 kg
[2021-04-04 14:32] VITALS: BP 125/83
== END 2021-04-04 14:47 | disposition home or self-care (01) ==
LOC: M.ERS 14:13
DX: F41.0 Panic disorder [episodic paroxysmal anxiety] (principal); M43.6 Torticollis; J45.909 Unspecified asthma, uncomplicated; Z79.899 Other long term (current) drug therapy